=== PATIENT | male | born 1935 | race Caucasian/White ===

== ENCOUNTER 2020-05-13 18:55 | Inpatient (IN) | payer BC, MEDICAID, MEDICARE ==
[2020-05-13] MEDS: Diltiazem 100 MG in Sodium Chloride 0.9% 100 ML IV SCH (19:00)
[2020-05-13] MEDS ORDERED: Albuterol 0.083% 2.5 MG/3 ML Neb Soln NEB PRN (19:29)
[2020-05-13] MEDS ORDERED: Ondansetron 4 MG Tab.DIS PO PRN (19:29)
[2020-05-13] MEDS ORDERED: LORazepam 2 MG/ML SDV IVPUSH PRN (19:29)
[2020-05-13] MEDS ORDERED: Melatonin 3 MG Tab PO PRN (19:29)
[2020-05-13] MEDS ORDERED: Ondansetron 4 MG/2 ML SDV IV PRN (19:29)
[2020-05-13] MEDS ORDERED: Sodium Chloride 0.9% 1,000 ML IV SCH (19:30)
[2020-05-13] MEDS ORDERED: Enoxaparin 40 MG/0.4 ML Syringe SUBCUT SCH (19:30)
--- NOTE | 2020-05-13 19:33 | PCM.HP.2 ---
H&P History of Present Illness - General Date of Service: 05/13/20 Admit Problem/Dx: Admission Diagnosis/Problem Admission Diagnosis/Problem Paroxysmal atrial fibrillation with rapid ventricular response Source of Information: Patient, Provider, RN Notes Reviewed History Limitations: Reports: No Limitations - History of Present Illness Initial Comments - Free Text/Narative: CC: I just didn't feel right HPI: Andrzej presents to the intensive care unit as a direct admission from [facility]. He presented there with palpitations and was found to be in rapid atrial fibrillation but they did not have any available beds so he was sent here for admission. He was diagnosed with COVID-19 about 2 weeks ago. Main symptoms have been cough, fatigue and anorexia. He had some mild fevers at onset but these have resolved. His cough has resolved. He does not report significant shortness of breath. He does have significant fatigue and has a poor appetite. Over the past couple of days he has been more weak and fatigued and sleeping much of the day. He has noted some palpitations. He has not had any chest pain or orthopnea. Bowels have been moving normally. No lower extremity edema. He does not have a history of atrial fibrillation. Work-up in the outside emergency room revealed atrial fibrillation with a rapid ventricular response and heart rate in the 130s. D-dimer was very mildly elevated as was his BNP. Other laboratory studies were fairly unremarkable. He was started on a diltiazem infusion with some improvement in his heart rate. No beds were available so he was sent here for admission and further management. - Related Data Allergies/Adverse Reactions: Allergies Allergy/AdvReac Type Severity Reaction Status Date / Time lisinopril Allergy Other Verified 05/13/20 19:05 Home Medications: Home Meds Aspirin [Halfprin] 81 mg PO DAILY 05/13/20 [History] Calcium Carbonate 600 mg PO ACLUNCH 05/13/20 [History] Cholecalciferol (Vitamin D3) [Vitamin D3] 2,000 unit PO DAILY 05/13/20 [History] Levothyroxine 112 mcg PO ACBREAKFAST 05/13/20 [History] Losartan [Cozaar] 100 mg PO DAILY 05/13/20 [History] Lutein 20 mg PO DAILY 05/13/20 [History] Metoprolol Succinate 37.5 mg PO DAILY 05/13/20 [History] Multivitamins,Ther w-Minerals [Multivitamins with Minerals HP] 1 cap PO DAILY 05/13/20 [History] amLODIPine Besylate [Amlodipine Besylate] 5 mg PO DAILY 05/13/20 [History] Social & Family History - Family History Cardiac: Denies: CAD - Tobacco Use Tobacco Use Within Last Twelve Months: Smokeless Tobacco - Alcohol Use Alcohol Use History: No Alcohol Use in Last Twelve Months: No - Recreational Drug Use Recreational Drug Use: No Drug Use in Last 12 Months: No H&P Review of Systems - Review of Systems: Review Of Systems: See Below Free Text/Narrative: A complete 12 point review of systems was obtained. Pertinent positives and negatives are noted in the history of present illness. All other systems were reviewed and were negative except as noted. Exam - Exam Exam: See Below - Exam Quality Assessment: No: Supplemental Oxygen General: Alert, Oriented, Cooperative. No: Mild Distress HEENT: Conjunctiva Clear. No: Mucosa Moist & [place] (dry), Scleral Icterus Neck: Supple, Trachea Midline. No: JVD Lungs: Clear to Auscultation, Normal Respiratory Effort. No: Crackles Cardiovascular: Irregular Rhythm, Tachycardia. No: Systolic Murmur GI/Abdominal Exam: Normal Bowel Sounds, Soft, Non-Tender, No Distention, No Mass Back Exam: Normal Inspection, Full Range of Motion Extremities: No Pedal Edema. No: Joint Swelling, Increased Warmth Peripheral Pulses: 2+: Dorsalis Pedis (L), Dorsalis Pedis (R) Skin: Warm, Dry Neuro Extensive - Mental Status: Alert, Oriented x3, Nl Response to Commands Neuro Extensive - Motor, Sensory, Reflexes: No: Dysarthria, Abnormal Motor, Tremor Psychiatric: Alert, Normal Affect - Patient Data Imaging Impressions Last 24 hrs: Chest x-ray-image from [facility] personally reviewed-lungs are clear with no mass, infiltrate or effusion. He does have mild cardiomegaly. #1 Interpretation EKG Date: 05/13/20 Rhythm: A-Fib Rate (Beats/Min): 122 [place]: Normal P-Wave: Variable QRS: Normal ST-T: Normal QT: Normal Comparison: NA - No Prior EKG EKG Interpretation Comments: This EKG image was personally reviewed *Q Meaningful Use (ADM) - VTE Risk Assess *Q Each Risk Factor Represents 1 Point: None Total Score 1 Point Risk Factors: 0 Each Risk Factor Represents 2 Points: None Total Score 2 Point Risk Factors: 0 Each Risk Factor Represents 3 Points: Age 75 Years or Greater Total Score 3 Point Risk Factors: 3 Each Risk Factor Represents 5 Points: None Total Score 5 Point Risk Factors: 0 Venous Thromboembolism Risk Factor Score *Q: 3 - Problem List (1) Paroxysmal atrial fibrillation with rapid ventricular response SNOMED Code(s): 823830391, 665580541994652 ICD Code: I48.0 - PAROXYSMAL ATRIAL FIBRILLATION Status: Acute Current Visit: Yes (2) COVID-19 SNOMED Code(s): 769801053 ICD Code: U07.1 - COVID-19 Status: Acute Current Visit: Yes (3) Essential hypertension SNOMED Code(s): 53308575 ICD Code: I10 - ESSENTIAL (PRIMARY) HYPERTENSION Status: Chronic Current Visit: Yes (4) Coronary artery disease SNOMED Code(s): 39188516 ICD Code: I25.10 - ATHSCL HEART DISEASE OF [place] CORONARY ARTERY W/O ANG PCTRS Status: Chronic Current Visit: Yes Qualifiers: Coronary Disease-Associated Artery/Lesion type: [place] artery [place] vs. transplanted heart: [place] heart Associated angina: without angina Qualified Code(s): I25.10 - Atherosclerotic heart disease of [place] coronary artery without angina pectoris (5) Hypothyroidism SNOMED Code(s): 67834902 ICD Code: E03.9 - HYPOTHYROIDISM, UNSPECIFIED Status: Chronic Current Visit: Yes Qualifiers: Hypothyroidism type: acquired Qualified Code(s): E03.9 - Hypothyroidism, unspecified Problem List Initiated/Reviewed/Updated: Yes Orders Last 24hrs: Active Orders 24 hr Category Date Time Status Patient Status [ADT] Routine ADT 05/13/20 19:29 Ordered Cardiac Monitoring [RC] CONTINUOUS Care 05/13/20 19:30 Ordered Intake and Output [RC] QSHIFT Care 05/13/20 19:29 Ordered Notify Provider Vital Signs [RC] ASDIRECTED Care 05/13/20 19:29 Ordered Oxygen Therapy [RC] PRN Care 05/13/20 19:29 Ordered RT Aerosol Therapy [RC] ASDIRECTED Care 05/13/20 19:31 Ordered Up ad La [RC] ASDIRECTED Care 05/13/20 19:29 Ordered VTE/DVT Education [RC] Per Unit Routine Care 05/13/20 19:29 Ordered Vital Signs [RC] Q2HR Care 05/13/20 19:29 Ordered Regular Diet [DIET] Diet 05/13/20 Dinner Ordered BASIC METABOLIC PANEL,BMP [CHEM] AM Lab 05/14/20 05:11 Ordered CBC W/O DIFF,HEMOGRAM [HEME] AM Lab 05/14/20 05:11 Ordered MAGNESIUM [CHEM] AM Lab 05/14/20 05:11 Ordered Acetaminophen [TylenoL] Med 05/13/20 19:29 Ordered 650 mg PO Q4H PRN Albuterol [Proventil Neb Soln] Med 05/13/20 19:29 Ordered 2.5 mg NEB Q4H PRN Aspirin [Halfprin] Med 05/14/20 09:00 Ordered 81 mg PO DAILY Diltiazem 100 MG in Normal Saline Adv @ 5 MG/HR(100ml) Med 05/13/20 19:45 Ordered Diltiazem [Cardizem] 100 mg Sodium Chloride 0.9% [Normal Saline] 100 ml IV TITRATE Docusate Sodium/Sennosides [Senna Plus] Med 05/13/20 19:29 Ordered 1 tab PO BID PRN Enoxaparin [Lovenox] Med 05/13/20 19:30 Ordered 40 mg SUBCUT Q24H Gabapentin [Neurontin] Med 05/13/20 21:00 Ordered 100 mg PO BID LORazepam [Ativan] Med 05/13/20 19:29 Ordered 0.5 mg IVPUSH Q4H PRN Levothyroxine Med 05/14/20 07:30 Ordered 112 mcg PO ACBREAKFAST Losartan [Cozaar] Med 05/14/20 09:00 Ordered 100 mg PO DAILY Lutein [Lutein] Med 05/14/20 09:00 Ordered 20 mg PO DAILY Magnesium Hydroxide [Milk of Magnesia] Med 05/13/20 19:29 Ordered 30 ml PO Q12H PRN Melatonin Med 05/13/20 19:29 Ordered 9 mg PO BEDTIME PRN Metoprolol Succinate [Toprol XL] Med 05/14/20 09:00 Ordered 37.5 mg PO DAILY Ondansetron [Zofran ODT] Med 05/13/20 19:29 Ordered 4 mg PO Q6H PRN Ondansetron [Zofran] Med 05/13/20 19:29 Ordered 4 mg IV Q6H PRN Sodium Chloride 0.9% [Normal Saline] 1,000 ml Med 05/13/20 19:30 Ordered IV ASDIRECTED Resuscitation Status Routine Resus Stat 05/13/20 19:29 Ordered Assessment/Plan Comment:: ASSESSMENT AND PLAN - Paroxysmal atrial fibrillation with rapid ventricular response-still suboptimal control with the diltiazem infusion. I suspect this is related to his Covid infection. No other obvious source for infection. Electrolytes are normal. No evidence for ischemia. No evidence for volume overload. CHADSS-VASC 4 (age, HTN, CAD). -Diltiazem infusion, titrate as needed -Continue beta-fanny -Cardiac monitoring -TSH in the morning -Reassess anticoagulation once chronicity can be determined Recent COVID-19 infection-he is about 2 weeks out from his diagnosis. Main residual symptoms are anorexia and fatigue as well as weakness. No fevers. Labs fairly unremarkable. No indication for isolation at this time. -Enoxaparin Coronary artery disease-history of diffuse LAD disease being treated medically. No active angina. Troponin normal. -Continue medical management Essential hypertension-plan to hold amlodipine until we see what his pressure does with the diltiazem infusion but will continue losartan and metoprolol. Maintenance issues - - DVT prophylaxis -enoxaparin - GI prophylaxis -not indicated - Nutrition -regular - [place] catheter -not indicated CODE STATUS -full code Admission justification -this patient will be admitted for inpatient services and is medically appropriate meeting medical necessity for inpatient admission as outlined in my documentation. I reasonably expect the patient will require inpatient services that span a period time over 2 midnights. I reasonably expect this patient to be discharged or transferred within 96 hours [facility]. Disposition -I would anticipate discharge home after the hospital stay Primary care physician -[facility] Aaron Busby M.D. - Mortality Measure Prognosis:: Good
[2020-05-13] MEDS: Gabapentin 100 MG Cap PO SCH (20:07)
[2020-05-14] MEDS: Tamsulosin 0.4 MG Cap.ER PO SCH ×2 (06:37→09:19)
[2020-05-14] MEDS ORDERED: Enoxaparin 40 MG/0.4 ML Syringe SUBCUT SCH (07:00)
[2020-05-14] MEDS: Levothyroxine 112 MCG Tab PO SCH (07:52)
[2020-05-14] MEDS: Enoxaparin 40 MG/0.4 ML Syringe SUBCUT SCH (07:52)
[2020-05-14] MEDS ORDERED: Metoprolol Succinate 25 MG Tab.ER PO SCH (09:00)
[2020-05-14] MEDS: Gabapentin 100 MG Cap PO SCH (09:07)
--- NOTE | 2020-05-14 09:25 | PCM.PN ---
- General Info Date of Service: 05/14/20 Subjective Update: No acute events overnight. Heart rate control was pretty good overnight with most of his heart rates in the 80s and 90s. He is a little bit more tachycardic this morning. No complaints of chest pain. He was on supplemental oxygen for a short while overnight. Still feels weak and tired but otherwise feels okay. Appetite is a little better. Functional Status: Reports: Tolerating Diet - Review of Systems General: Reports: Weakness, Fatigue. Denies: Fever - Patient Data Vitals - Most Recent: Last Vital Signs Temp 36.4 C 05/14/20 08:00 Pulse Resp 19 05/14/20 08:00 BP 140/84 05/14/20 08:00 Pulse Ox 95 05/14/20 08:00 Weight - Most Recent: 91.535 kg I&O - Last 24 Hours: Intake & Output 05/13/20 05/14/20 05/14/20 22:59 06:59 14:59 Output Total 250 350 Balance -250 -350 Lab Results Last 24 Hours: Laboratory Results - last 24 hr 05/14/20 05/14/20 Range/Units 04:26 04:26 WBC 4.9 (4.5-11.0) K/uL RBC 3.83 L (4.30-5.90) M/uL Hgb 10.3 L (12.0-15.0) g/dL Hct 33.4 L (40.0-54.0) % MCV 87 (80-98) fL MCH 27 (27-31) pg MCHC 31 L (32-36) % Plt Count 182 (150-400) K/uL Sodium 139 L (140-148) mmol/L Potassium 4.5 (3.6-5.2) mmol/L Chloride 105 (100-108) mmol/L Carbon Dioxide 25 (21-32) mmol/L Anion Gap 13.5 (5.0-14.0) mmol/L BUN 23 H (7-18) mg/dL Creatinine 1.6 H (0.8-1.3) mg/dL Est Cr Clr Drug Dosing 32.71 mL/min Estimated GFR (MDRD) 41 L (>60) Glucose 98 (74-106) mg/dL Calcium 7.9 L (8.5-10.1) mg/dL Magnesium 1.7 L (1.8-2.4) mg/dL Med Orders - Current: Current Medications Acetaminophen (Tylenol) 650 mg PO Q4H PRN PRN Reason: Pain (Mild 1-3)/fever Albuterol (Proventil Neb Soln) 2.5 mg NEB Q4H PRN PRN Reason: Shortness Of Breath/wheezing Aspirin (Halfprin) 81 mg PO DAILY [facility] Enoxaparin Sodium (Lovenox) 40 mg SUBCUT Q24H [facility] Last Admin: 05/14/20 07:52 Dose: 40 mg Documented by: Gabapentin (Neurontin) 100 mg PO BID [facility] Last Admin: 05/14/20 09:07 Dose: Not Given Documented by: Sodium Chloride (Normal Saline) 1,000 mls @ 25 mls/hr IV ASDIRECTED [facility] Last Admin: 05/13/20 20:23 Dose: 25 mls/hr Documented by: Diltiazem HCl 100 mg/ Sodium (Chloride) 100 mls @ 5 mls/hr IV TITRATE [facility]; Protocol Last Titration: 05/14/20 09:03 Dose: 10 mg/hr, 10 mls/hr Documented by: Magnesium Sulfate (Magnesium Sulfate In Water 2 Gm/50 Ml) 2 gm in 50 mls @ 25 mls/hr IV ONETIME ONE Stop: 05/14/20 11:29 Levothyroxine Sodium (Levothyroxine) 112 mcg PO ACBREAKFAST [facility] Last Admin: 05/14/20 07:52 Dose: 112 mcg Documented by: Lorazepam (Ativan) 0.5 mg IVPUSH Q4H PRN PRN Reason: Nausea/Vomiting Losartan Potassium (Cozaar) 100 mg PO DAILY [facility] Magnesium Hydroxide (Milk Of Magnesia) 30 ml PO Q12H PRN PRN Reason: Constipation Melatonin (Melatonin) 9 mg PO BEDTIME PRN PRN Reason: Sleep Metoprolol Succinate (Toprol Xl) 37.5 mg PO DAILY [facility] Nf--Lutein [Lutein] (20 Mg)) 20 mg PO DAILY [facility] Ondansetron HCl (Zofran) 4 mg IV Q6H PRN PRN Reason: Nausea/Vomiting Ondansetron HCl (Zofran Odt) 4 mg PO Q6H PRN PRN Reason: Nausea able to take PO Senna/Docusate Sodium (Senna Plus) 1 tab PO BID PRN PRN Reason: Constipation Tamsulosin HCl (Flomax) 0.4 mg PO PCBREAKFAST [facility] Last Admin: 05/14/20 09:19 Dose: Not Given Documented by: Discontinued Medications Enoxaparin Sodium (Lovenox) 40 mg SUBCUT Q24H [facility] - Exam Quality Assessment: No: Supplemental Oxygen General: Alert, Oriented, Cooperative, No Acute Distress Lungs: Normal Respiratory Effort. No: Wheezing Cardiovascular: Irregular Rhythm, Tachycardia GI/Abdominal Exam: No Distention Extremities: No Pedal Edema Psy/Mental Status: Alert, Normal Affect - Patient Data Lab Results Last 24 hrs: Laboratory Results - last 24 hr 05/14/20 05/14/20 Range/Units 04:26 04:26 WBC 4.9 (4.5-11.0) K/uL RBC 3.83 L (4.30-5.90) M/uL Hgb 10.3 L (12.0-15.0) g/dL Hct 33.4 L (40.0-54.0) % MCV 87 (80-98) fL MCH 27 (27-31) pg MCHC 31 L (32-36) % Plt Count 182 (150-400) K/uL Sodium 139 L (140-148) mmol/L Potassium 4.5 (3.6-5.2) mmol/L Chloride 105 (100-108) mmol/L Carbon Dioxide 25 (21-32) mmol/L Anion Gap 13.5 (5.0-14.0) mmol/L BUN 23 H (7-18) mg/dL Creatinine 1.6 H (0.8-1.3) mg/dL Est Cr Clr Drug Dosing 32.71 mL/min Estimated GFR (MDRD) 41 L (>60) Glucose 98 (74-106) mg/dL Calcium 7.9 L (8.5-10.1) mg/dL Magnesium 1.7 L (1.8-2.4) mg/dL Result Diagrams: 05/14/20 04:26 05/14/20 04:26 Sepsis Event Note - Evaluation Sepsis Screening Result: No Definite Risk - Focused Exam Vital Signs: Vital Signs Temp Resp BP Pulse Ox 05/14/20 08:00 36.4 C 19 140/84 95 05/14/20 07:00 36.4 C 20 123/75 92 L 05/14/20 06:00 20 96 05/14/20 05:00 23 H 127/68 91 L 05/14/20 04:00 24 H 125/76 93 L 05/14/20 03:00 36.4 C 22 H 117/78 92 L 05/14/20 02:00 23 H 125/71 95 05/14/20 01:00 25 H 127/75 96 05/14/20 00:00 22 H 121/65 93 L 05/13/20 23:00 19 119/69 94 L 05/13/20 22:00 23 H 127/70 93 L - Problem List & Annotations (1) Paroxysmal atrial fibrillation with rapid ventricular response SNOMED Code(s): 098286002, 281659089350648 Code(s): I48.0 - PAROXYSMAL ATRIAL FIBRILLATION Status: Acute Current Visit: Yes (2) COVID-19 SNOMED Code(s): 136510266 Code(s): U07.1 - COVID-19 Status: Acute Current Visit: Yes (3) Essential hypertension SNOMED Code(s): 69810228 Code(s): I10 - ESSENTIAL (PRIMARY) HYPERTENSION Status: Chronic Current Visit: Yes (4) Coronary artery disease SNOMED Code(s): 52732136 Code(s): I25.10 - ATHSCL HEART DISEASE OF [place] CORONARY ARTERY W/O ANG PCTRS Status: Chronic Current Visit: Yes Qualifiers: Coronary Disease-Associated Artery/Lesion type: [place] artery [place] vs. transplanted heart: [place] Associated angina: without angina Qualified Code(s): I25.10 - Atherosclerotic heart disease of [place] coronary artery without angina pectoris (5) Hypothyroidism SNOMED Code(s): 74164951 Code(s): E03.9 - HYPOTHYROIDISM, UNSPECIFIED Status: Chronic Current Visit: Yes Qualifiers: Hypothyroidism type: acquired Qualified Code(s): E03.9 - Hypothyroidism, unspecified - Problem List Review Problem List Initiated/Reviewed/Updated: Yes - My Orders Last 24 Hours: My Active Orders 05/13/20 Dinner Regular Diet [DIET] 05/13/20 19:29 Patient Status [ADT] Routine Intake and Output [RC] QSHIFT Notify Provider Vital Signs [RC] ASDIRECTED Oxygen Therapy [RC] PRN Up ad La [RC] ASDIRECTED VTE/DVT Education [RC] Per Unit Routine Vital Signs [RC] Q1H Acetaminophen [TylenoL] 650 mg PO Q4H PRN Albuterol [Proventil Neb Soln] 2.5 mg NEB Q4H PRN Docusate Sodium/Sennosides [Senna Plus] 1 tab PO BID PRN LORazepam [Ativan] 0.5 mg IVPUSH Q4H PRN Magnesium Hydroxide [Milk of Magnesia] 30 ml PO Q12H PRN Melatonin 9 mg PO BEDTIME PRN Ondansetron [Zofran ODT] 4 mg PO Q6H PRN Ondansetron [Zofran] 4 mg IV Q6H PRN Resuscitation Status Routine 05/13/20 19:30 Cardiac Monitoring [RC] Q6H Sodium Chloride 0.9% [Normal Saline] 1,000 ml IV ASDIRECTED 05/13/20 19:31 RT Aerosol Therapy [RC] ASDIRECTED 05/13/20 19:45 Diltiazem [Cardizem] 100 mg Sodium Chloride 0.9% [Normal Saline] 100 ml IV TITRATE 05/13/20 21:00 Gabapentin [Neurontin] 100 mg PO BID 05/14/20 06:18 Tamsulosin [Flomax] 0.4 mg PO PCBREAKFAST 05/14/20 06:33 UA W/MICROSCOPIC [URIN] Routine 05/14/20 07:30 Levothyroxine 112 mcg PO ACBREAKFAST 05/14/20 08:00 Enoxaparin [Lovenox] 40 mg SUBCUT Q24H 05/14/20 09:00 Aspirin [Halfprin] 81 mg PO DAILY Losartan [Cozaar] 100 mg PO DAILY Lutein [Lutein] 20 mg PO DAILY Metoprolol Succinate [Toprol XL] 37.5 mg PO DAILY 05/14/20 09:30 Magnesium Sulfate/Water [Magnesium Sulfate in Water 2 GM/50 ML] 2 gm in 50 ml IV ONETIME - Plan Plan:: ASSESSMENT AND PLAN - Paroxysmal atrial fibrillation with rapid ventricular response-still suboptimal control with the diltiazem infusion. I suspect this is related to his Covid infection. CHADSS-VASC 4 (age, HTN, CAD). Duration of atrial fibrillation is unknown. Rate control improved but not quite optimal. -Diltiazem infusion, titrate as needed -Optimize electrolytes -Continue beta-fanny -Cardiac monitoring -Reassess anticoagulation once chronicity can be determined Recent COVID-19 infection-he is about 2 weeks out from his diagnosis. Main residual symptoms are anorexia and fatigue as well as weakness. No fevers. Labs fairly unremarkable. No indication for isolation at this time. -Enoxaparin Coronary artery disease-history of diffuse LAD disease being treated medically. -Continue medical management Essential hypertension-plan to hold amlodipine until we see what his pressure does with the diltiazem infusion but will continue losartan and metoprolol. Maintenance issues - - DVT prophylaxis -enoxaparin - GI prophylaxis -not indicated - Nutrition -regular Disposition -I would anticipate discharge home after the hospital stay Primary care physician -[facility] Aaron Busby M.D.
[2020-05-14] MEDS: Losartan 50 MG Tab PO SCH (09:27)
[2020-05-14] MEDS: Aspirin 81 MG Tab.EC PO SCH (09:28)
[2020-05-14] MEDS ORDERED: Magnesium Sulfate/Water 2 GM/50 ML BAG IV ONE (09:30)
[2020-05-14] MEDS: LUTEIN 20 MG PO SCH (09:38)
[2020-05-14] MEDS: Diltiazem 100 MG in Sodium Chloride 0.9% 100 ML IV SCH ×2 (10:27→17:27)
[2020-05-14] MEDS: Acetaminophen 325 MG Tab PO PRN (15:37)
[2020-05-15] MEDS: Levothyroxine 112 MCG Tab PO SCH (08:01)
[2020-05-15] MEDS: Enoxaparin 40 MG/0.4 ML Syringe SUBCUT SCH (08:01)
[2020-05-15] MEDS: Losartan 50 MG Tab PO SCH (09:52)
[2020-05-15] MEDS: Aspirin 81 MG Tab.EC PO SCH (09:53)
[2020-05-15] MEDS: Metoprolol Succinate 50 MG Tab.ER PO SCH (09:54)
[2020-05-15] MEDS: Diltiazem IR 30 MG Tab PO SCH ×3 (09:55→21:37)
[2020-05-15] MEDS: Tamsulosin 0.4 MG Cap.ER PO SCH (10:08)
--- NOTE | 2020-05-15 10:33 | PCM.PN ---
- General Info Date of Service: 05/15/20 Subjective Update: Mr. Adamson has remained stable over the last 24 hours, rate control improved with increased dose of IV diltiazem. Blood pressures have been somewhat borderline but not significantly low to this point. He continues to feel fairly weak with a poor appetite. Denies significant shortness of breath and oxygen saturations have been within desired range. Functional Status: Reports: Urinating - Review of Systems General: Reports: Weakness, Fatigue. Denies: Fever, Chills, Appetite Pulmonary: Reports: No Symptoms Cardiovascular: Reports: No Symptoms Gastrointestinal: Reports: No Symptoms - Patient Data Vitals - Most Recent: Last Vital Signs Temp 98.8 F 05/15/20 08:00 Pulse 84 05/15/20 09:54 Resp 24 H 05/15/20 08:00 BP 113/65 05/15/20 09:54 Pulse Ox 94 L 05/15/20 08:00 Weight - Most Recent: 201 lb 12.8 oz I&O - Last 24 Hours: Intake & Output 05/14/20 05/15/20 05/15/20 22:59 06:59 14:59 Intake Total 400 Output Total 250 Balance 150 Lab Results Last 24 Hours: Laboratory Results - last 24 hr 05/14/20 Range/Units 10:55 Urine Color Yellow (YELLOW) Urine Appearance Clear (CLEAR) Urine pH 5.5 (5.0-8.0) Ur Specific [place] 1.025 (1.008-1.030) Urine Protein Negative (NEGATIVE) mg/dL Urine Glucose (UA) Negative (NEGATIVE) mg/dL Urine Ketones Negative (NEGATIVE) mg/dL Urine Occult Blood Negative (NEGATIVE) Urine Nitrite Negative (NEGATIVE) Urine Bilirubin Negative (NEGATIVE) Urine Urobilinogen 0.2 (0.2-1.0) EU/dL Ur Leukocyte Esterase Negative (NEGATIVE) Urine RBC Not seen (0-5) Urine WBC Not seen (0-5) Ur Epithelial Cells Not seen Amorphous Sediment Few Urine Bacteria Not seen Urine Mucus Moderate Med Orders - Current: Current Medications Acetaminophen (Tylenol) 650 mg PO Q4H PRN PRN Reason: Pain (Mild 1-3)/fever Last Admin: 05/14/20 15:37 Dose: 650 mg Documented by: Albuterol (Proventil Neb Soln) 2.5 mg NEB Q4H PRN PRN Reason: Shortness Of Breath/wheezing Apixaban (Eliquis) 10 mg PO Q12H [facility] Stop: 05/21/20 22:31 Aspirin (Halfprin) 81 mg PO DAILY [facility] Last Admin: 05/15/20 09:53 Dose: 81 mg Documented by: Diltiazem HCl (Cardizem) 60 mg PO Q6HR [facility] Last Admin: 05/15/20 09:55 Dose: 60 mg Documented by: Levothyroxine Sodium (Levothyroxine) 112 mcg PO ACBREAKFAST [facility] Last Admin: 05/15/20 08:01 Dose: 112 mcg Documented by: Lorazepam (Ativan) 0.5 mg IVPUSH Q4H PRN PRN Reason: Nausea/Vomiting Losartan Potassium (Cozaar) 100 mg PO DAILY [facility] Last Admin: 05/15/20 09:52 Dose: 100 mg Documented by: Magnesium Hydroxide (Milk Of Magnesia) 30 ml PO Q12H PRN PRN Reason: Constipation Melatonin (Melatonin) 9 mg PO BEDTIME PRN PRN Reason: Sleep Metoprolol Succinate (Toprol Xl) 50 mg PO DAILY [facility] Last Admin: 05/15/20 09:54 Dose: 50 mg Documented by: Nf--Lutein [Lutein] (20 Mg)) 20 mg PO DAILY [facility] Last Admin: 05/14/20 09:38 Dose: Not Given Documented by: Ondansetron HCl (Zofran) 4 mg IV Q6H PRN PRN Reason: Nausea/Vomiting Ondansetron HCl (Zofran Odt) 4 mg PO Q6H PRN PRN Reason: Nausea able to take PO Last Admin: 05/14/20 15:37 Dose: 4 mg Documented by: Senna/Docusate Sodium (Senna Plus) 1 tab PO BID PRN PRN Reason: Constipation Tamsulosin HCl (Flomax) 0.4 mg PO PCBREAKFAST [facility] Last Admin: 05/15/20 10:08 Dose: 0.4 mg Documented by: Discontinued Medications Enoxaparin Sodium (Lovenox) 40 mg SUBCUT Q24H [facility] Last Admin: 05/14/20 10:14 Dose: Not Given Documented by: Enoxaparin Sodium (Lovenox) 40 mg SUBCUT Q24H [facility] Last Admin: 05/15/20 08:01 Dose: 40 mg Documented by: Gabapentin (Neurontin) 100 mg PO BID [facility] Last Admin: 05/14/20 09:07 Dose: Not Given Documented by: Sodium Chloride (Normal Saline) 1,000 mls @ 25 mls/hr IV ASDIRECTED [facility] Last Admin: 05/13/20 20:23 Dose: 25 mls/hr Documented by: Diltiazem HCl 100 mg/ Sodium (Chloride) 100 mls @ 5 mls/hr IV TITRATE [facility]; Protocol Last Titration: 05/15/20 08:02 Dose: Infused Documented by: Magnesium Sulfate (Magnesium Sulfate In Water 2 Gm/50 Ml) 2 gm in 50 mls @ 25 mls/hr IV ONETIME ONE Stop: 05/14/20 11:29 Last Admin: 05/14/20 09:38 Dose: 25 mls/hr Documented by: Metoprolol Succinate (Toprol Xl) 37.5 mg PO DAILY [facility] Last Admin: 05/14/20 09:36 Dose: 37.5 mg Documented by: - Exam Quality Assessment: DVT Prophylaxis General: Alert, Oriented, Cooperative, Mild Distress Lungs: Clear to Auscultation, Normal Respiratory Effort, Decreased Breath Sounds Cardiovascular: Regular Rate, No Murmurs, Irregular Rhythm GI/Abdominal Exam: Soft, Non-Tender, No Organomegaly, No Distention Extremities: Non-Tender, No Pedal Edema - Patient Data Lab Results Last 24 hrs: Laboratory Results - last 24 hr 05/14/20 Range/Units 10:55 Urine Color Yellow (YELLOW) Urine Appearance Clear (CLEAR) Urine pH 5.5 (5.0-8.0) Ur Specific [place] 1.025 (1.008-1.030) Urine Protein Negative (NEGATIVE) mg/dL Urine Glucose (UA) Negative (NEGATIVE) mg/dL Urine Ketones Negative (NEGATIVE) mg/dL Urine Occult Blood Negative (NEGATIVE) Urine Nitrite Negative (NEGATIVE) Urine Bilirubin Negative (NEGATIVE) Urine Urobilinogen 0.2 (0.2-1.0) EU/dL Ur Leukocyte Esterase Negative (NEGATIVE) Urine RBC Not seen (0-5) Urine WBC Not seen (0-5) Ur Epithelial Cells Not seen Amorphous Sediment Few Urine Bacteria Not seen Urine Mucus Moderate Result Diagrams: 05/14/20 04:26 05/14/20 04:26 Sepsis Event Note - Evaluation Sepsis Screening Result: No Definite Risk - Focused Exam Vital Signs: Vital Signs Temp Pulse Pulse Resp BP BP Pulse Ox 03/01/21 09:54 84 113/65 05/15/20 09:52 113/65 05/15/20 08:00 98.8 F 98 24 H 130/66 94 L 05/15/20 07:00 78 22 H 122/63 95 05/15/20 06:00 95 17 111/55 L 95 05/15/20 05:00 83 15 109/57 L 93 L 05/15/20 04:00 89 27 H 104/48 L 96 05/15/20 03:00 98.1 F 80 24 H 103/55 L 93 L 05/15/20 02:00 72 23 H 100/53 L 93 L 05/15/20 01:00 83 22 H 104/41 L 95 05/15/20 00:00 78 21 H 101/41 L 92 L 05/14/20 23:00 78 22 H 101/47 L 96 - Problem List Review Problem List Initiated/Reviewed/Updated: Yes - My Orders Last 24 Hours: My Active Orders 05/15/20 09:40 Convert IV to Saline Lock [OM.PC] Routine 05/15/20 10:00 Diltiazem IR [Cardizem] 60 mg PO Q6HR 05/15/20 10:30 Apixaban [Eliquis] 10 mg PO Q12H 05/16/20 05:00 BASIC METABOLIC PANEL,BMP [CHEM] Timed MAGNESIUM [CHEM] Timed - Plan Plan:: ASSESSMENT AND PLAN - Paroxysmal atrial fibrillation with rapid ventricular response-rate control improved with increased dose of diltiazem, plan to transition from IV to oral diltiazem today -Discontinue diltiazem infusion -Short acting diltiazem 60 mg every 6 hours, transition to long-acting form in a.m. if tolerated -Optimize electrolytes -Continue beta-fanny -Cardiac monitoring -Apixaban 10 mg every 12 hours for 1 week, then 5 mg twice daily thereafter Recent COVID-19 infection-he is about 2 weeks out from his diagnosis. Main residual symptoms are anorexia and fatigue as well as weakness. No fevers. Labs fairly unremarkable. No indication for isolation at this time. -Apixaban as above Coronary artery disease-history of diffuse LAD disease being treated medically. -Continue medical management Essential hypertension-plan to hold amlodipine until we see what his pressure does with the diltiazem infusion but will continue losartan and metoprolol. Maintenance issues - - DVT prophylaxis -enoxaparin - GI prophylaxis -not indicated - Nutrition -regular Disposition -I would anticipate discharge home after the hospital stay Primary care physician -[facility]
[2020-05-15] MEDS: Apixaban 5 MG Tab PO SCH ×2 (12:20→21:37)
[2020-05-15] MEDS: LUTEIN 20 MG PO SCH (12:22)
[2020-05-16] MEDS: Acetaminophen 325 MG Tab PO PRN ×2 (01:19→16:24)
[2020-05-16] MEDS: Diltiazem IR 30 MG Tab PO SCH (04:08)
[2020-05-16] MEDS: Levothyroxine 112 MCG Tab PO SCH (08:28)
[2020-05-16] MEDS: Losartan 50 MG Tab PO SCH (09:36)
[2020-05-16] MEDS: Apixaban 5 MG Tab PO SCH (09:36)
[2020-05-16] MEDS: Metoprolol Succinate 50 MG Tab.ER PO SCH (09:37)
[2020-05-16] MEDS: Tamsulosin 0.4 MG Cap.ER PO SCH (09:37)
[2020-05-16] MEDS: Aspirin 81 MG Tab.EC PO SCH (09:38)
[2020-05-16] MEDS: Diltiazem 120 MG Cap.CD PO SCH (09:53)
[2020-05-16] MEDS: LUTEIN 20 MG PO SCH ×2 (09:54→13:00)
--- NOTE | 2020-05-16 10:46 | PCM.PN ---
- General Info Date of Service: 05/16/20 Subjective Update: Mr. Adamson has remained stable since yesterday. Rate controlled good with current management and we will plan to transition to long-acting diltiazem today. He has been noted to have episodes of significant desaturation at night despite use of supplemental oxygen. Functional Status: Reports: Tolerating Diet, Urinating - Review of Systems General: Reports: Weakness, Fatigue. Denies: Fever, Chills Pulmonary: Reports: No Symptoms Cardiovascular: Reports: No Symptoms Gastrointestinal: Reports: No Symptoms Genitourinary: Reports: No Symptoms - Patient Data Vitals - Most Recent: Last Vital Signs Temp 97.4 F 05/16/20 08:00 Pulse 85 05/16/20 10:00 Resp 20 05/16/20 10:00 BP 104/60 05/16/20 10:00 Pulse Ox 94 L 05/16/20 10:00 Weight - Most Recent: 201 lb 12.802 oz I&O - Last 24 Hours: Intake & Output 05/15/20 05/16/20 05/16/20 22:59 06:59 14:59 Intake Total 820 Output Total 250 Balance 820 -250 Lab Results Last 24 Hours: Laboratory Results - last 24 hr 05/16/20 Range/Units 04:26 Sodium 134 L (140-148) mmol/L Potassium 4.1 (3.6-5.2) mmol/L Chloride 103 (100-108) mmol/L Carbon Dioxide 22 (21-32) mmol/L Anion Gap 13.1 (5.0-14.0) mmol/L BUN 29 H (7-18) mg/dL Creatinine 1.9 H (0.8-1.3) mg/dL Est Cr Clr Drug Dosing 27.47 mL/min Estimated GFR (MDRD) 34 L (>60) Glucose 103 (74-106) mg/dL Calcium 7.7 L (8.5-10.1) mg/dL Magnesium 2.1 (1.8-2.4) mg/dL Med Orders - Current: Current Medications Acetaminophen (Tylenol) 650 mg PO Q4H PRN PRN Reason: Pain (Mild 1-3)/fever Last Admin: 05/16/20 01:19 Dose: 650 mg Documented by: Albuterol (Proventil Neb Soln) 2.5 mg NEB Q4H PRN PRN Reason: Shortness Of Breath/wheezing Apixaban (Eliquis) 10 mg PO BID [facility] Stop: 05/21/20 21:01 Last Admin: 05/16/20 09:36 Dose: 10 mg Documented by: Aspirin (Halfprin) 81 mg PO DAILY [facility] Last Admin: 05/16/20 09:38 Dose: 81 mg Documented by: Diltiazem HCl (Cardizem Cd) 240 mg PO DAILY [facility] Last Admin: 05/16/20 09:53 Dose: 240 mg Documented by: Levothyroxine Sodium (Levothyroxine) 112 mcg PO ACBREAKFAST [facility] Last Admin: 05/16/20 08:28 Dose: 112 mcg Documented by: Lorazepam (Ativan) 0.5 mg IVPUSH Q4H PRN PRN Reason: Nausea/Vomiting Losartan Potassium (Cozaar) 100 mg PO DAILY [facility] Last Admin: 05/16/20 09:36 Dose: 100 mg Documented by: Magnesium Hydroxide (Milk Of Magnesia) 30 ml PO Q12H PRN PRN Reason: Constipation Melatonin (Melatonin) 9 mg PO BEDTIME PRN PRN Reason: Sleep Metoprolol Succinate (Toprol Xl) 50 mg PO DAILY [facility] Last Admin: 05/16/20 09:37 Dose: 50 mg Documented by: Nf--Lutein [Lutein] (20 Mg)) 20 mg PO DAILY [facility] Last Admin: 05/16/20 09:54 Dose: Not Given Documented by: Ondansetron HCl (Zofran) 4 mg IV Q6H PRN PRN Reason: Nausea/Vomiting Ondansetron HCl (Zofran Odt) 4 mg PO Q6H PRN PRN Reason: Nausea able to take PO Last Admin: 05/14/20 15:37 Dose: 4 mg Documented by: Senna/Docusate Sodium (Senna Plus) 1 tab PO BID PRN PRN Reason: Constipation Tamsulosin HCl (Flomax) 0.4 mg PO PCBREAKFAST [facility] Last Admin: 05/16/20 09:37 Dose: 0.4 mg Documented by: Discontinued Medications Diltiazem HCl (Cardizem) 60 mg PO Q6HR [facility] Last Admin: 05/16/20 04:08 Dose: 60 mg Documented by: Enoxaparin Sodium (Lovenox) 40 mg SUBCUT Q24H [facility] Last Admin: 05/14/20 10:14 Dose: Not Given Documented by: Enoxaparin Sodium (Lovenox) 40 mg SUBCUT Q24H [facility] Last Admin: 05/15/20 08:01 Dose: 40 mg Documented by: Gabapentin (Neurontin) 100 mg PO BID [facility] Last Admin: 05/14/20 09:07 Dose: Not Given Documented by: Sodium Chloride (Normal Saline) 1,000 mls @ 25 mls/hr IV ASDIRECTED [facility] Last Admin: 05/13/20 20:23 Dose: 25 mls/hr Documented by: Diltiazem HCl 100 mg/ Sodium (Chloride) 100 mls @ 5 mls/hr IV TITRATE [facility]; Protocol Last Titration: 05/15/20 08:02 Dose: Infused Documented by: Magnesium Sulfate (Magnesium Sulfate In Water 2 Gm/50 Ml) 2 gm in 50 mls @ 25 mls/hr IV ONETIME ONE Stop: 05/14/20 11:29 Last Admin: 05/14/20 09:38 Dose: 25 mls/hr Documented by: Metoprolol Succinate (Toprol Xl) 37.5 mg PO DAILY [facility] Last Admin: 05/14/20 09:36 Dose: 37.5 mg Documented by: - Exam Quality Assessment: Supplemental Oxygen, DVT Prophylaxis General: Alert, Oriented, Cooperative, Mild Distress Lungs: Clear to Auscultation, Normal Respiratory Effort Cardiovascular: Regular Rate, No Murmurs, Irregular Rhythm GI/Abdominal Exam: Soft, Non-Tender, No Organomegaly, No Distention Extremities: Non-Tender, No Pedal Edema - Patient Data Lab Results Last 24 hrs: Laboratory Results - last 24 hr 05/16/20 Range/Units 04:26 Sodium 134 L (140-148) mmol/L Potassium 4.1 (3.6-5.2) mmol/L Chloride 103 (100-108) mmol/L Carbon Dioxide 22 (21-32) mmol/L Anion Gap 13.1 (5.0-14.0) mmol/L BUN 29 H (7-18) mg/dL Creatinine 1.9 H (0.8-1.3) mg/dL Est Cr Clr Drug Dosing 27.47 mL/min Estimated GFR (MDRD) 34 L (>60) Glucose 103 (74-106) mg/dL Calcium 7.7 L (8.5-10.1) mg/dL Magnesium 2.1 (1.8-2.4) mg/dL Result Diagrams: 05/14/20 04:26 05/16/20 04:26 Sepsis Event Note - Evaluation Sepsis Screening Result: No Definite Risk - Focused Exam Vital Signs: Vital Signs Temp Temp Pulse Pulse Resp BP BP 05/16/20 10:00 85 20 104/60 05/16/20 09:53 94 108/49 L 05/16/20 09:37 94 108/49 L 05/16/20 09:36 108/49 L 05/16/20 08:00 97.4 F 76 12 108/49 L 05/16/20 06:00 89 21 H 105/41 L 05/16/20 04:00 99.0 F 88 22 H 120/59 L 05/16/20 02:00 100.6 F 87 22 H 114/62 05/16/20 01:49 99.0 F 05/16/20 01:19 100.6 F 05/15/20 23:58 100.4 F 77 24 H 107/52 L Pulse Ox 05/16/20 10:00 94 L 05/16/20 09:53 05/16/20 09:37 05/16/20 09:36 05/16/20 08:00 95 05/16/20 06:00 95 05/16/20 04:00 95 05/16/20 02:00 95 05/16/20 01:49 05/16/20 01:19 05/15/20 23:58 94 L - Problem List Review Problem List Initiated/Reviewed/Updated: Yes - My Orders Last 24 Hours: My Active Orders 05/15/20 10:30 Apixaban [Eliquis] 10 mg PO BID 05/16/20 09:30 Diltiazem [Cardizem CD] 240 mg PO DAILY - Plan Plan:: ASSESSMENT AND PLAN - Paroxysmal atrial fibrillation with rapid ventricular response-rate control improved with increased dose of diltiazem, plan to transition from short acting diltiazem to long-acting today -Diltiazem CD 240 mg p.o. daily -Optimize electrolytes -Continue beta-fanny -Cardiac monitoring -Apixaban 10 mg every 12 hours for 1 week, then 5 mg twice daily thereafter Episodes of hypoventilation and hypoxia at night-he has been noted to desaturate with hypoventilation at night and documented oxygen saturation of 60% despite supplemental oxygen at 3 L/min via nasal cannula. -Continue use of oxygen at night -Consider noninvasive positive pressure ventilation while sleeping Recent COVID-19 infection-he is about 2 weeks out from his diagnosis. Main residual symptoms are anorexia and fatigue as well as weakness. No fevers. Labs fairly unremarkable. No indication for isolation at this time. -Apixaban as above Coronary artery disease-history of diffuse LAD disease being treated medically. -Continue medical management Essential hypertension-plan to hold amlodipine until we see what his pressure does with the diltiazem infusion but will continue losartan and metoprolol. Maintenance issues - - DVT prophylaxis -enoxaparin - GI prophylaxis -not indicated - Nutrition -regular Disposition -I would anticipate discharge home after the hospital stay Primary care physician -[facility]
[2020-05-16] MEDS: Magnesium Hydroxide 400 MG/5 ML Susp 30 ML Cup PO PRN (16:26)
[2020-05-16] MEDS: Apixaban 2.5 MG Tab PO SCH (20:24)
[2020-05-17] MEDS: Levothyroxine 112 MCG Tab PO SCH (07:40)
[2020-05-17] MEDS: Aspirin 81 MG Tab.EC PO SCH (09:00)
[2020-05-17] MEDS: Tamsulosin 0.4 MG Cap.ER PO SCH (09:00)
[2020-05-17] MEDS: Apixaban 2.5 MG Tab PO SCH (09:00)
[2020-05-17] MEDS: LUTEIN 20 MG PO SCH (09:00)
[2020-05-17] MEDS: Magnesium Hydroxide 400 MG/5 ML Susp 30 ML Cup PO PRN (09:00)
[2020-05-17] MEDS: Losartan 50 MG Tab PO SCH (09:00)
[2020-05-17] MEDS: Diltiazem 120 MG Cap.CD PO SCH (09:01)
[2020-05-17] MEDS: Metoprolol Succinate 50 MG Tab.ER PO SCH (09:01)
--- NOTE | 2020-05-17 12:42 | PCM.DCSUM1 ---
Discharge Summary - Hospital Course Brief History: Mr. Adamson is an 85-year-old gentleman who was admitted as a direct admission from the emergency department in [place] with weakness secondary to recent COVID-19 infection and atrial fibrillation with rapid ventricular response. - Discharge Data Discharge Date: 05/17/20 Discharge Disposition: Home, W Home Health Agency 06 Condition: Fair - Referral to Home Health Date of Face to Face Encounter: 05/17/20 Reason for Homebound Status: Weakness, hypoxia Primary Care Physician: Gil Cool MD Skilled Need: Nursing care, physical therapy, Occupational Therapy - Patient Summary/Data Consults: Consultations 05/17/20 08:40 PT Evaluation and Treatment [CONS] Routine Please Evaluate and Treat. PT Reason for Consult: Ambulation Pending Discharge: Yes This query below is only for informational purposes and is not editable. Admission Diagnosis/Problem: Paroxysmal atrial fibrillation with rapid ventricular response Hospital Course: Mr. Adamson presented to the intensive care unit as a direct admission from [facility]. He presented there with palpitations and was found to be in rapid atrial fibrillation but they did not have any available beds so he was sent here for admission. He was diagnosed with COVID-19 about 2 weeks ago. Main symptoms have been cough, fatigue and anorexia. He had some mild fevers at onset but these have resolved. His cough has resolved. He does not report significant shortness of breath. He does have significant fatigue and has a poor appetite. Over the past couple of days he has been more weak and fatigued and sleeping much of the day. Work-up in the outside emergency room revealed atrial fibrillation with a rapid ventricular response and heart rate in the 130s. D-dimer was very mildly elevated as was his BNP. Other laboratory studies were fairly unremarkable. He was started on a diltiazem infusion with some improvement in his heart rate. No beds were available so he was sent here for admission and further management. On admission to our facility was continued on the diltiazem infusion. Dose of metoprolol was increased from his baseline to 50 mg daily. Rate control improved with metoprolol and diltiazem infusion. He was converted to oral diltiazem on May 15 at 60 mg every 6 hours. He tolerated this well and on May 16 was switched to long-acting diltiazem 240 mg daily. Rate control remained fairly good throughout the duration of his hospital stay. A [id number] score was 4. He was started on oral anticoagulation with Eliquis 2.5 mg twice daily and will be continued on this medication after discharge. Potential complications of anticoagulation including bleeding were reviewed with the patient and family. He was noted to have episodes of hypoxia especially at night and did receive supplemental oxygen through hospital stay. He did have a documented oxygen saturation of 88% while sitting at rest and will be discharged home with oxygen 2 L/min via nasal cannula. Echocardiogram was obtained and showed borderline left ventricular systolic function with an estimated ejection fraction of 50 to 55%. There was mild right ventricular enlargement as well as biatrial enlargement. Diastolic dysfunction could not be assessed because of the atrial fibrillation. Activity will be as tolerated and he will resume low-sodium diet. Follow-up appointment will be scheduled with primary care within 1 week. He will be discharged home with home care services including nursing care, physical therapy, and Occupational Therapy. He will be discharged with supplemental oxygen 2 L/min via nasal cannula. - Patient Instructions Diet: Low Sodium Activity: As Tolerated Other/Special Instructions: Please arrange for home oxygen 2 L/min via nasal cannula. Please schedule follow-up appointment with primary care provider within 1 week. Please arrange for home care services including home physical therapy and Occupational Therapy. - Discharge Plan *PRESCRIPTION DRUG MONITORING PROGRAM REVIEWED*: Not Applicable *COPY OF PRESCRIPTION DRUG MONITORING REPORT IN PATIENT BRITTANY: Not Applicable Prescriptions/Med Rec: Diltiazem HCl [Diltiazem 24Hr Cd] 240 mg PO DAILY #30 cap.er.24h Apixaban [Eliquis] 2.5 mg PO BID #60 tablet Metoprolol Succinate [Toprol XL 50mg] 50 mg PO DAILY #30 tab.er Home Medications: Home Meds Aspirin [Halfprin] 81 mg PO DAILY 05/13/20 [History] Calcium Carbonate 600 mg PO ACLUNCH 05/13/20 [History] Cholecalciferol (Vitamin D3) [Vitamin D3] 2,000 unit PO DAILY 05/13/20 [History] Levothyroxine 112 mcg PO ACBREAKFAST 05/13/20 [History] Losartan [Cozaar] 100 mg PO DAILY 05/13/20 [History] Lutein 20 mg PO DAILY 05/13/20 [History] Multivitamins,Ther w-Minerals [Multivitamins with Minerals HP] 1 cap PO DAILY 05/13/20 [History] amLODIPine Besylate [Amlodipine Besylate] 5 mg PO DAILY 05/13/20 [History] Apixaban [Eliquis] 2.5 mg PO BID #60 tablet 05/17/20 [Rx] Diltiazem HCl [Diltiazem 24Hr Cd] 240 mg PO DAILY #30 cap.er.24h 05/17/20 [Rx] Metoprolol Succinate [Toprol XL 50mg] 50 mg PO DAILY #30 tab.er 05/17/20 [Rx] Oxygen Therapy Mode: Nasal Cannula Oxygen Flow Rate (L/min): 2 Maintain SpO2% greater than: 90 Referrals: Gil Cool MD [Primary Care Provider] - 05/26/20 9:30 am (Please ask Dr Cool about Covid vaccination.) - Discharge Summary/Plan Comment DC Time >30 min.: No - Patient Data Vitals - Most Recent: Last Vital Signs Temp 97.6 F 05/17/20 08:00 Pulse 99 05/17/20 09:01 Resp 22 H 05/17/20 08:00 BP 112/80 05/17/20 09:01 Pulse Ox 91 L 05/17/20 08:00 Weight - Most Recent: 201 lb 12.802 oz I&O - Last 24 hours: Intake & Output 05/16/20 05/17/20 05/17/20 22:59 06:59 14:59 Intake Total 240 Output Total 100 200 200 Balance 140 -200 -200 Med Orders - Current: Current Medications Acetaminophen (Tylenol) 650 mg PO Q4H PRN PRN Reason: Pain (Mild 1-3)/fever Last Admin: 05/16/20 16:24 Dose: 650 mg Documented by: Albuterol (Proventil Neb Soln) 2.5 mg NEB Q4H PRN PRN Reason: Shortness Of Breath/wheezing Apixaban (Eliquis) 2.5 mg PO BID [facility] Last Admin: 05/17/20 09:00 Dose: 2.5 mg Documented by: Aspirin (Halfprin) 81 mg PO DAILY [facility] Last Admin: 05/17/20 09:00 Dose: 81 mg Documented by: Diltiazem HCl (Cardizem Cd) 240 mg PO DAILY [facility] Last Admin: 05/17/20 09:01 Dose: 240 mg Documented by: Levothyroxine Sodium (Levothyroxine) 112 mcg PO ACBREAKFAST [facility] Last Admin: 05/17/20 07:40 Dose: 112 mcg Documented by: Lorazepam (Ativan) 0.5 mg IVPUSH Q4H PRN PRN Reason: Nausea/Vomiting Losartan Potassium (Cozaar) 100 mg PO DAILY [facility] Last Admin: 05/17/20 09:00 Dose: 100 mg Documented by: Magnesium Hydroxide (Milk Of Magnesia) 30 ml PO Q12H PRN PRN Reason: Constipation Last Admin: 05/17/20 09:00 Dose: 30 ml Documented by: Melatonin (Melatonin) 9 mg PO BEDTIME PRN PRN Reason: Sleep Metoprolol Succinate (Toprol Xl) 50 mg PO DAILY [facility] Last Admin: 05/17/20 09:01 Dose: 50 mg Documented by: Nf--Lutein [Lutein] (20 Mg)) 20 mg PO DAILY [facility] Last Admin: 05/17/20 09:00 Dose: 20 mg Documented by: Ondansetron HCl (Zofran) 4 mg IV Q6H PRN PRN Reason: Nausea/Vomiting Ondansetron HCl (Zofran Odt) 4 mg PO Q6H PRN PRN Reason: Nausea able to take PO Last Admin: 05/14/20 15:37 Dose: 4 mg Documented by: Senna/Docusate Sodium (Senna Plus) 1 tab PO BID PRN PRN Reason: Constipation Last Admin: 05/17/20 09:00 Dose: 1 tab Documented by: Tamsulosin HCl (Flomax) 0.4 mg PO PCBREAKFAST [facility] Last Admin: 05/17/20 09:00 Dose: 0.4 mg Documented by: Discontinued Medications Apixaban (Eliquis) 10 mg PO BID [facility] Stop: 05/21/20 21:01 Last Admin: 05/16/20 09:36 Dose: 10 mg Documented by: Diltiazem HCl (Cardizem) 60 mg PO Q6HR [facility] Last Admin: 05/16/20 04:08 Dose: 60 mg Documented by: Enoxaparin Sodium (Lovenox) 40 mg SUBCUT Q24H [facility] Last Admin: 05/14/20 10:14 Dose: Not Given Documented by: Enoxaparin Sodium (Lovenox) 40 mg SUBCUT Q24H [facility] Last Admin: 05/15/20 08:01 Dose: 40 mg Documented by: Gabapentin (Neurontin) 100 mg PO BID [facility] Last Admin: 05/14/20 09:07 Dose: Not Given Documented by: Sodium Chloride (Normal Saline) 1,000 mls @ 25 mls/hr IV ASDIRECTED [facility] Last Admin: 05/13/20 20:23 Dose: 25 mls/hr Documented by: Diltiazem HCl 100 mg/ Sodium (Chloride) 100 mls @ 5 mls/hr IV TITRATE EDWINA; Protocol Last Titration: 05/15/20 08:02 Dose: Infused Documented by: Magnesium Sulfate (Magnesium Sulfate In Water 2 Gm/50 Ml) 2 gm in 50 mls @ 25 mls/hr IV ONETIME ONE Stop: 05/14/20 11:29 Last Admin: 05/14/20 09:38 Dose: 25 mls/hr Documented by: Metoprolol Succinate (Toprol Xl) 37.5 mg PO DAILY [facility] Last Admin: 05/14/20 09:36 Dose: 37.5 mg Documented by: - Exam Quality Assessment: Reports: Supplemental Oxygen, DVT Prophylaxis General: Reports: Alert, Oriented, No Acute Distress Lungs: Reports: Clear to Auscultation, Normal Respiratory Effort Cardiovascular: Reports: Regular Rate, No Murmurs, Irregular Rhythm GI/Abdominal Exam: Soft, Non-Tender, No Organomegaly, No Distention Extremities: Non-Tender, No Pedal Edema
== END 2020-05-17 15:14 | disposition home health service (06) | DRG 310 ==
LOC: JP.ICU 18:55
PROVIDERS: ADMIT Internal Medicine; ATTEND Hospitalist
DX: I48.0 Paroxysmal atrial fibrillation (principal); I25.10 Atherosclerotic heart disease of native coronary artery without angina pectoris; R06.89 Other abnormalities of breathing; I10 Essential (primary) hypertension; F17.290 Nicotine dependence, other tobacco product, uncomplicated; E03.9 Hypothyroidism, unspecified; R09.02 Hypoxemia; R53.83 Other fatigue; Z79.82 Long term (current) use of aspirin; Z79.890 Hormone replacement therapy; Z79.899 Other long term (current) drug therapy; B94.8 Sequelae of other specified infectious and parasitic diseases; Z99.81 Dependence on supplemental oxygen; Z88.8 Allergy status to other drugs, medicaments and biological substances
CPT/HCPCS: 36415; 80048; 81001; 83735; 85027; 93306; 94660; 97110-GP; 97162-GP; 97530-GP; 97535-GP; A9270-GY; J1650; J3475; J3490; J7030